=== PATIENT | female | born 1970 | race African-American/Black ===

== ENCOUNTER 2024-04-26 17:17 | Emergency (ER) | payer BC, SELFPAY ==
[2024-04-26 17:22] VITALS: BP 165/86
[2024-04-26 17:41] LABS: % Basophils 0.1 % (0-2); % Immature Granulocytes 0.3 % (0-0.5); % Lymphocytes 27.8 % (20.5-51.1); % Monocytes 6.6 % (1.7-9.3); % Neutrophils 65.2 % (42.2-75.2); Absolute Lymphocytes 1.9 10^3/uL (1.2-3.4); Absolute Monocytes 0.5 10^3/uL (0.1-0.6); Absolute Neutrophils 4.5 10^3/uL (1.4-6.5); Hematocrit 35.3 % (37.0-47.0); Hemoglobin 11.5 g/dL (12.0-16.0); Mean Corp Hgb Conc. 32.6 g/dL (33.0-37.0); Mean Corpuscular Hgb 26.5 pg (27.0-31.0); Mean Corpuscular Volume 81.3 fL (81.0-99.0); Mean Platelet Volume 10.3 fL (7.4-10.4); Nucleated Red Blood Cells % 0 %; Platelet Count 250 10^3/uL (130-400); Red Blood Cell Count 4.34 10^6/uL (4.20-5.40); Red Cell Dist. Width 13.4 % (11.5-14.5); White Blood Cell Count 6.8 10^3/uL (4.8-10.8)
[2024-04-26 17:52] LABS: ALT (SGPT) 27 U/L (0-35); AST (SGOT) 33 U/L (14-36); Albumin 4.4 g/dl (3.5-5.0); Alkaline Phosphatase 116 U/L (38-126); Blood Urea Nitrogen 22 mg/dl (7-17); Calcium 9.4 mg/dl (8.4-10.2); Carbon Dioxide 27 mmol/L (22-30); Chloride 103 mmol/L (98-107); Glucose 97 mg/dl (70-99); Potassium 3.9 mmol/L (3.5-5.1); Sodium 141 mmol/L (135-145); Total Bilirubin 0.2 mg/dl (0.2-1.3); Total Protein 7.3 g/dl (6.3-8.2); eGFR > 60.00
[2024-04-26 19:04] LABS: Urine Albumin Trace (Neg - Trace); Urine Bilirubin Negative (Negative); Urine Character Clear (Clear); Urine Color Yellow; Urine Glucose Negative (Negative); Urine Ketone Trace (Negative); Urine Leukocyte Trace (Negative); Urine Nitrite Negative (Negative); Urine Occult Blood 4+ (Negative); Urine Specific Gravity 1.025 (<1.030); Urine Urobilinogen Negative (Neg - 1+)
[2024-04-26 19:13] LABS: Urine Red Blood Cell >100 /HPF (0-2)
[2024-04-26 19:14] LABS: Urine Bacteria Few (Negative); Urine White Cell 0-2 /HPF (0-5)
--- NOTE | 2024-04-26 19:28 | ED.GENMED ---
History of Present Illness
General
Chief Complaint: Back Pain
Time Seen by Provider: 04/26/24 19:05
History of Present Illness
History of Present Illness:
53-year-old female presents to the emergency department from her urologist office due to bilateral low back pain/flank pain. She has had this pain intermittently for the past several months that seems to come and go. She has been empirically
diagnosed with UTIs at urgent care in the past but states the urine culture result was negative. She followed up with urogynecology today where she was noted to have a large volume of blood in the urine and was sent to the ED to rule out
ureterolithiasis. Patient reports a diffuse pain to the low back that radiates to bilateral hips and down the right leg. Denies any anterior pelvic pain. No fevers or chills. No dysuria but does have urinary urgency
Review of Systems
Review of Systems
Allergies reviewed?: Yes
All Other Systems: ROS reviewed and negative except as documented in HPI and ROS
Phy Exam
Physical Exam
Physical Exam:
GEN: Well appearing, NAD, WDWN
HEENT: Oral mucosa moist, no scleral icterus
Cardiac: Regular rate
Lung: No respiratory distress, no tachypnea
Abdomen: No CVA tenderness bilaterally
MSK: No gross deformity or injuries
Skin: Good color, no pallor or jaundice, no rashes
Neuro: AO x3, moves all extremities freely
Psych: Calm, cooperative
Course
Orders/Labs/Results
Orders:
Orders
04/26/24 17:27
CT Abd/pel Without Iv Or Oral Urgent
Reason For Exam: b/l flank pain, eval for kidney stone
04/26/24 17:32
Complete Blood Count/With Diff Urgent
Comprehensive Metabolic Panel Urgent
04/26/24 18:58
Urine Culture Reflexed from UA [Urinalysis Reflex To Culture] Urgent
Date Specimen was Collected: 04/26/24
Time Specimen was Collected: 18:57
Urine Microscopic Reflex Cult Urgent
04/26/24 19:28
Ketorolac [Toradol] 30 mg IM NOW STA
Abnormal Lab Results
04/26/24 04/26/24
17:32 18:58
Hgb 11.5 L g/dL
(12.0-16.0)
Hct 35.3 L %
(37.0-47.0)
MCH 26.5 L pg
(27.0-31.0)
MCHC 32.6 L g/dL
(33.0-37.0)
BUN 22 H mg/dl
(7-17)
Urine Ketones Trace A
(Negative)
Ur Occult Blood Reflex 4+ A
(Negative)
Leukocyte Esterase Rfl Trace A
(Negative)
Urine RBC >100 A /HPF
(0-2)
Urine Bacteria (Reflex) Few A
(Negative)
04/26/24 17:32
04/26/24 17:32
Vital Signs
Initial and Last Documented VS:
Initial Vital Signs
Temp Pulse Resp BP Pulse Ox
98.2 F 60 18 165/86 99
04/26/24 17:22 04/26/24 17:22 04/26/24 17:22 04/26/24 17:22 04/26/24 17:22
Last Documented Vital Signs
Temp Pulse Resp BP Pulse Ox
98.2 F 60 18 165/86 99
04/26/24 17:22 04/26/24 17:22 04/26/24 17:22 04/26/24 17:22 04/26/24 17:22
MDM/Problems Addressed
MDM/Problems Addressed:
Imaging shows no for ureterolithiasis. Urinalysis shows hematuria with no findings concerning for UTI. I suspect her back pain is mechanical low back pain/lumbar radiculopathy, will trial course of steroids as NSAIDs have not been providing her
any benefit. Recommend continued urogyn follow-up for further workup of hematuria as an outpatient
*Critical Care Note
Total Time (30-74mins, 75-104mins- exclusive of procedures): Not Applicable
ED Attending Note
-
Portions of this chart may have been created with voice recognition software.� Occasional wrong word or��sound alike� substitutions may have occurred due to the inherent limitations of voice recognition software.
Discharge Plan
Departure
Patient Disposition: Home (Routine Discharge)
Date of Disposition: 04/26/24
Time of Disposition: 20:34
Patient with high blood pressure during this ER visit?: No
Discharge Problem:
Lumbar radiculopathy
Instructions: Radiculopathy (DC)
Prescriptions:
New
methylprednisolone [Medrol (Bg)] 4 mg tablets,dose pack
See Rx Instructions .ROUTE .COMPLEX Qty: 21 0RF
Rx Instructions:
orally per package directions
oxycodone-acetaminophen [Percocet] 5-325 mg tablet
1 tab PO Q6HPRN PRN (Reason: pain) Qty: 8 0RF
Referrals:
Barbi Dewey MD [Family Provider] -
Activity Restrictions/Additional Instructions:
There is no sign of kidney stones
Please follow up with your urologist for further evaluation of the blood in your urine
Interventions
Interventions:
*Risk Screen - Suicide Last Done: 04/26/24 17:22
*General Assessment Last Done: 04/26/24 17:22
*Neglect/Abuse Screening Last Done: 04/26/24 17:22
ED- Fall Risk Assessment Last Done: 04/26/24 20:54
*ED COVID-19 Vaccine History Last Done: 04/26/24 17:22
*Nursing Disposition Last Done: 04/26/24 20:54
ED-Musculoskeletal Assessment Last Done: 04/26/24 20:53
Discharge Date and Time
Discharge Date/Time: 04/26/24 20:54
Print Language: MONTSERRATIAN
[2024-04-26] MEDS: TORADOL 30 MG IM (19:36)
== END 2024-04-26 20:54 | disposition home or self-care (01) ==
LOC: EMR 17:17
PROVIDERS: Emergency Medicine; Student in an Organized Health Care Education/Training Program; EMERGENCY PHYSICIAN Student in an Organized Health Care Education/Training Program; FAMILY PHYSICIAN Family Medicine
DX: M54.16 Radiculopathy, lumbar region (principal); Z87.440 Personal history of urinary (tract) infections
CPT/HCPCS: 99284; 96372; 74176; 80053; 81003; 81015; 85025